=== PATIENT | female | born 2000 | race African-American/Black ===

== ENCOUNTER 2021-03-17 18:05 | Emergency (ER) | payer MEDICAID ==
[~2021-03-17] VITALS: Ht 167.6 cm; Wt 78.0 kg
[2021-03-17] MEDS ORDERED: TRAM50TA3 PO (18:34)
[2021-03-17 18:40] VITALS: BP 121/76
[2021-03-17] MEDS ORDERED: ACETAMINOPHEN 325MG TABLET PO ONE (19:00)
[2021-03-17] MEDS ORDERED: ACET-2708 MT (20:04)
== END 2021-03-17 19:53 | disposition home or self-care (01) ==
LOC: ER 19:27
DX: J03.90 Acute tonsillitis, unspecified (principal); Z87.19 Personal history of other diseases of the digestive system
CPT/HCPCS: 81025; 99282